=== PATIENT | female | born 1985 | race Caucasian/White ===

== ENCOUNTER 2021-04-13 01:18 | Outpatient (CLI) | payer MEDICAID, SELFPAY ==
--- NOTE | 2021-04-13 | DI.US_ITS ---
Exam(s) US OB EL WEIGHT EXAM: US OB EL WEIGHT CLINICAL HISTORY: GROWTH SCAN,SIZE GREATER THAN DATES. TECHNIQUE: Transabdominal obstetrical ultrasound was performed. COMPARISON: No exams were available for comparison . This is the 1st study for this gestation our d epartment FINDINGS: There is a single viable intrauterine gestation with cardiac activity identified-157 bpm The fetus is presently in cephalic position . Amniotic fluid: There is a normal amount of amniotic fluid with an EL of 10.0cm. Placental location: The placenta is [id number] 2,with no evidence of placenta previa. Dating parameters place this at approximately 38 weeks gestational age, implying ELIO of Apr. BPD measures 37 weeks HC measures 38 weeks and 1 day AC measures 38 weeks and 4 days FL measures 38 weeks and 3 days Estimated weight is 3454 gm-7 pounds 10 ounces Fetus is at the 80th percentile on the Hadlock scale. IMPRESSION:: Viable 3rd trimester gestation, as described above. Fetus is presently in cephalic position There is normal amount of amniotic fluid DATA REPOSITORY:
== END 2021-04-13 01:38 ==
PROVIDERS: PCP Family Medicine; Visit Provider Family Medicine
DX: O09.523 Supervision of elderly multigravida, third trimester (principal); O26.843 Uterine size-date discrepancy, third trimester
CPT/HCPCS: 76816

== ENCOUNTER 2021-04-29 20:03 | Observation (INO) | payer MEDICAID, SELFPAY ==
--- NOTE | 2021-04-06 11:28 | ANES.CON_ITS ---
General Date of Service Date of Service: 04/06/21 Reason for Consult Requesting Provider: Priya Tejeda Other Provider(Not Listed Above): Natalie Frederick How Consult Conducted:: Seen in Office Reason for Consult:: Elevated BMI of 46 Consult Recommendation after Review:: Good venous access, reasonable spine, OK to proceed with delivery at [facility] Meds Allergies and Home Medications Allergies Allergy/AdvReac Type Severity Reaction Status Date / Time Sulfa (Sulfonamide Allergy Verified 04/06/21 10:41 Antibiotics) Home Medication Medication Instructions Recorded Unknown [No Known Home Meds] 04/06/21 [facility] Active Problems Active Problems: Problem Status Onset Code Rubella non-immune status, antepartum O99.891, Z28.3 Abnormal glucose affecting O99.810 Obesity affecting in second trimester O99.212 AMA (advanced maternal age) multigravida 35+ O09.529 Vital Signs & Lab Results Point of Care Results Nursing Point of Care Results: No Data to Display Lab Results Blood Type / Crossmatch: No Data to Display Complete Blood Count: No Data to Display Complete Metabolic Panel: No Data to Display Liver Function Panel: No Data to Display Coagulation Panel: No Data to Display Cardiac Panel: No Data to Display Arterial Blood Gas: No Data to Display Venous Blood Gas: No Data to Display Pancreas Panel: No Data to Display Thyroid Panel: No Data to Display Infectious Disease: No Data to Display Blood Cultures: No Data to Display Toxicology Panel: No Data to Display Panel: No Data to Display Anesthesia Assessment and Plan Anesthesia History Personal History: No History of Anesthesia Complications Family History: No Family History of Anesthesia Complications Exercise Tolerance Exercise Tolerance: Metabolic Equivalents>4 Pertinent Negatives Pertinent Negatives: No Major Cardiovascular Symptoms or Complaints, No Major Pulmonary Symptoms or Complaints and No History of CVA/TIA Airway Exam Known Difficult Airway: No Mallampati Class: 3 Mouth Opening: Normal (> 3cm) Thyromental Distance: Greater than 3 cm Neck Range of Motion: Full ROM Neck Circumference: Normal Teeth Condition: Dental Caries (None loose per patient) ASA Classification ASA Score: ASA 3 Status Status: Confirmed Anesthesia Plan Resuscitation Status: Full Code
[2021-04-29 21:12] VITALS: BP 131/66; PULSE 111; RESP 18; TEMP 36.8
--- NOTE | 2021-04-29 22:26 | W.PM.OBHPL1 ---
Date of service: 04/29/21 Time of Service: 22:36 Assessment and Plan Assessment and plan (1) Obesity affecting in second trimester: Status: Acute Assessment and plan: no signs labor - ctx stopped, cervix unchanged. FHT reassuring, cat 1 Maternal wellbeing Home to rest, close outpt f/u at office. Call or return if ctx recur or she has any questions or concerns Scheduled PN appt mon 05/03 (2) AMA (advanced maternal age) multigravida 35+: Status: Acute (3) Tobacco abuse: Status: Acute (4) Rubella non-immune status, antepartum: Status: Acute (5) Abnormal glucose affecting : Status: Acute OB-HPI Labor/Delivery History of Present Illness Reason for Visit: Rule Out term labor Chief Complaint: Uterine Contractions. ELIO Calculator Estimated Delivery Date Method Current WG Current Estimate 05/01/21 LMP (Certain) 39w 5d Comments: called with mild ctx started ~7 pm. No ROM, excellent FM, no BURGESS, fever, cough, COVID sx or concerns. Quick labors in past and lives 1 hr away - I asked her to come for labor check On admission continued mild ctx, they have since faded/stopped. Cervix unchanged over the 70 min she was here. NST cat 1 with one isolated decel - excellent variability and nl vitals History of Present Expected Delivery Route/Plan with [place] Specific Issues/Plan 1. AMA 2. Obesity: BMI 47. Anesthesia consult 3. Elevated fasting on 3hr GTT: has adjusted diet and started checking finger sticks but only postprandial, which are all normal. Will start checking fasting levels as well. Assessment: History Reviewed & Current [facility] Medical History (Updated 04/06/21 @ 12:07 by Priya Tejeda MD) Anxiety Tobacco abuse Surgical History (Updated 04/06/21 @ 12:11 by Priya Tejeda MD) History of cholecystectomy History of tonsillectomy and adenoidectomy Family History (Updated 04/06/21 @ 12:45 by Priya Tejeda MD) Mother Depression Thyroid disease Father No problems noted. Other Cancer Social History (Updated 04/06/21 @ 12:30 by Priya Tejeda MD) Smoking/Tobacco Use Status: Current every day Tobacco Type: cigarettes Smoking packs per day: 0.5 Smoking cigarettes per day: 10.0 Smoking risk assessment performed?: Yes Female Reproductive History Menstrual control method: permanent sterilization ( scheduled for vasectomy) History History 6 Para 3 Hx # Term Pregnancies 3 Multiple births Hx # Pregnancies Ectopic pregnancies AB induced 2 Hx Number of Living Children 3 AB spontaneous Past Pregnancies Del. Date GA/Weeks # Outcome Route Wgt Sex Labor Lgth Anesthesia Location Prov Complic 11/15/05 40 No Successful vaginal 3600.389 g Male 6hr APD 06/06/08 40 No Successful vaginal 3628.739 g Female 5hr APD 03/04/20 41 No Successful vaginal 2920.001 g Female 4hr [facility] [place] Delivery Date: 11/15/05 No notes to display Delivery Date: 06/06/08 No notes to display Delivery Date: 03/04/20 Induction due to postdates Baclawski,Priya Meds Allergies and Home Medications Allergies Allergy/AdvReac Type Severity Reaction Status Date / Time Sulfa (Sulfonamide Allergy Verified 04/06/21 10:41 Antibiotics) Home Medications Medication Instructions Recorded Confirmed Type Unknown [No Known Home Meds] 04/06/21 04/06/21 History Exam Physical Exam Vital signs: Temp Pulse Resp BP 36.8 C 111 H 18 131/66 04/29/21 21:12 04/29/21 21:12 04/29/21 21:12 04/29/21 21:12 Constitutional Constitutional: no acute distress, obese and cooperative Detailed Labor and Delivery Exam Dilation: 2 Effacement (%): 50 station: 0 Position: OA Cervix position: anterior Consistency: soft Tyler Score: Cervical Points Exam 0 1 2 3 Dilation Closed 1-2cm 3-4 cm 5-6cm Effacement 0-30% 40-50% 60-70% 80% Consistency Firm Medium Soft Station -3 -2 -1,0 +1,+2 Position Posterior Mid Anterior TYLER Score(Cervical Ripeness Score): 8 Amniotic Membrane Status: Intact Contraction Frequency(min): q 4-10 mild Contraction Intensity: Mild Fetus A Heart Rate Baseline: 160 Monitor Accelerations: 15 X 15 Variability: Moderate (6-25 BPM) Presentation: Cephalic Categories: Category I Est. Weight: 3600 kg Assessment Note: fetql wellbeing Detailed Abdominal Exam Abdominal: Present soft Comments: soft, non tender abd - fundus ~39cm obese Detailed Exam Comments: cervix as above Extremities Exam Extremities Exam: Normal Detailed Extremities Exam Comments: no edema Skin Exam Skin Exam: Normal Neurological Exam Neurological Exam: Normal Risk Assessment Risks Reviewed Risks Reviewed Upon Admission: Yes
== END 2021-04-29 22:25 | disposition home or self-care (01) ==
LOC: OBS 21:15
PROVIDERS: Admitting Provider Family Medicine; PCP Family Medicine; Visit Provider Family Medicine
DX: O47.1 False labor at or after 37 completed weeks of gestation (principal); O99.810 Abnormal glucose complicating pregnancy; R73.02 Impaired glucose tolerance (oral); O99.213 Obesity complicating pregnancy, third trimester; O99.333 Smoking (tobacco) complicating pregnancy, third trimester; F17.210 Nicotine dependence, cigarettes, uncomplicated; O99.343 Other mental disorders complicating pregnancy, third trimester; F41.9 Anxiety disorder, unspecified
CPT/HCPCS: G0378

== ENCOUNTER 2021-04-30 22:41 | Observation (INO) | payer MEDICAID, SELFPAY ==
[2021-04-30 23:23] VITALS: BP 131/79; PULSE 109; RESP 19; TEMP 36.5
[2021-04-30 23:34] VITALS: BP 131/79; PULSE 107
[2021-04-30 23:57] VITALS: PULSE 105
[2021-05-01] VITALS (11 sets, daily range): BP systolic 128–145; BP diastolic 62–71; PULSE 83–109
--- NOTE | 2021-05-01 00:07 | HPE_ITS ---
Date of service: 05/01/21 Time of Service: 00:22 Assessment and Plan Assessment and plan (1) Obesity affecting in second trimester: Status: Acute Assessment and plan: as abov4e - no labor - home with routine instructions and close f/u scheduled. Cat 1 strip identified. Scarlet (2) AMA (advanced maternal age) multigravida 35+: Status: Acute (3) Tobacco abuse: Status: Acute OB-HPI Labor/Delivery History of Present Illness Reason for Visit: rule out labor Chief Complaint: Uterine Contractions. ELIO Calculator Estimated Delivery Date Method Current WG Current Estimate 05/01/21 LMP (Certain) 40w 0d Comments: Similar to 24hrs ago - mild ctx onset ~8pm - awakened her from sleep. No ROM, good FMVT, no BURGESS, visual changes, rash, fever. Now, ~3+ hrs later no cervical change vs yesterday and reassuring Cat1 NST with mild infreq, irreg uterine activity. ASS: No labor, reassuring and maternal condition Home with labor precautions F/u appt in [place] mon 9 AM if no labor over the w/e. Marcelo know to call or return if questions, concerns. Encouraged to minimize cig use - currently at 10/day. S.Hasmukh History of Present Expected Delivery Route/Plan with [place] Specific Issues/Plan 1. AMA 2. Obesity: BMI 47. Anesthesia consult 3. Elevated fasting on 3hr GTT: has adjusted diet and started checking finger sticks but only postprandial, which are all normal. Will start checking fasting levels as well. [facility] Medical History (Updated 04/06/21 @ 12:07 by Priya Tejeda MD) Anxiety Tobacco abuse Surgical History (Updated 04/06/21 @ 12:11 by Priya Tejeda MD) History of cholecystectomy History of tonsillectomy and adenoidectomy Family History (Updated 04/06/21 @ 12:45 by Priya Tejeda MD) Mother Depression Thyroid disease Father No problems noted. Other Cancer Social History (Updated 04/06/21 @ 12:30 by Priya Tejeda MD) Smoking/Tobacco Use Status: Current every day Tobacco Type: cigarettes Smoking packs per day: 0.5 Smoking cigarettes per day: 10.0 Smoking risk assessment performed?: Yes Female Reproductive History Menstrual control method: permanent sterilization ( scheduled for vasectomy) History History 6 Para 3 Hx # Term Pregnancies 3 Multiple births Hx # Pregnancies Ectopic pregnancies AB induced 2 Hx Number of Living Children 3 AB spontaneous Past Pregnancies Del. Date GA/Weeks # Outcome Route Wgt Sex Labor Lgth Anesthes ia Location Prov Complic 11/15/05 40 No Successful vaginal 3600.389 g Male 6hr APD 06/06/08 40 No Successful vaginal 3628.739 g Female 5hr APD 03/04/20 41 No Successful vaginal 2920.[address] [facility] Delivery Date: 11/15/05 No notes to display Delivery Date: 06/06/08 No notes to display Delivery Date: 03/04/20 Induction due to postdates BaclawskiPriya Meds Allergies and Home Medications Allergies Allergy/AdvReac Type Severity Reaction Status Date / Time Sulfa (Sulfonamide Allergy Verified 04/06/21 10:41 Antibiotics) Home Medications Medication Instructions Recorded Confirmed Type Unknown [No Known Home Meds] 04/06/21 04/06/21 History Exam Physical Exam Vital signs: Temp Pulse Resp BP 36.5 C 106 H 19 131/79 04/30/21 23:23 05/01/21 00:01 04/30/21 23:23 04/30/21 23:34 Constitutional Constitutional: no acute distress Detailed Labor and Delivery Exam Dilation: 2 Effacement (%): 50 station: 0 Position: OA Cervix position: anterior Consistency: soft Tyler Score: Cervical Points Exam 0 1 2 3 Dilation Closed 1-2cm 3-4 cm 5-6cm Effacement 0-30% 40-50% 60-70% 80% Consistency Firm Medium Soft Station -3 -2 -1,0 +1,+2 Position Posterior Mid Anterior TYLER Score(Cervical Ripeness Score): 8 Amniotic Membrane Status: Intact Contraction Frequency(min): mild q 2-5 Contraction Intensity: Mild Fetus A Heart Rate Baseline: 145 Monitor Accelerations: 15 X 15 Monitor Decelerations: Prolonged Variability: Moderate (6-25 BPM) Presentation: Cephalic Categories: Category I Est. Weight: 3600 Assessment Note: two decels to ~110 unassoc with ctx. excellent variabil;ity and accels throughout 30-40 min strip. Similar isolated decel last night too - ?related to cig use prior to admission? Abdominal Exam Abdominal Exam: Normal Detailed Abdominal Exam Abdominal: Present soft Comments: non-tender. i palpated mild ctx times one during 20 min at bedside Results Results Group Beta Strep: Negative Rubella Status: Immune Varicella Immunity: Not Tested Risk Assessment Risks Reviewed Risks Reviewed Upon Admission: Yes
--- NOTE | 2021-05-01 07:38 | HPE_ITS ---
Date of service: 05/01/21 Time of Service: 07:52 Assessment and Plan Assessment and plan (1) Tobacco abuse: Status: Acute (2) Abnormal glucose affecting : Status: Acute (3) Obesity affecting in second trimester: Status: Acute (4) AMA (advanced maternal age) multigravida 35+: Status: Acute (5) Active labor: Status: Acute Assessment and plan: avg risk for shoulder dystocia given tested pelvis offset by obesity Active labor with hx short labors - will admit for expectant management. Encourage po fluids, ambulation, shower, tub. Thus far has good support from partner and is tolerating well. and Maternal wellbeing noted. Melissa Noe OB-HPI Labor/Delivery History of Present Illness Reason for Visit: rule out labor Chief Complaint: Uterine Contractions. ELIO Calculator Estimated Delivery Date Method Current WG Current Estimate 05/01/21 LMP (Certain) 40w 0d Comments: vs last night's eval - more intense uterine activity. Feeling in her back, no ROM, goiod FMVT. Plans shower and walking for pain control History of Present Expected Delivery Route/Plan with [place] Specific Issues/Plan 1. AMA 2. Obesity: BMI 47. Anesthesia consult 3. Elevated fasting on 3hr GTT: has adjusted diet and started checking finger sticks but only postprandial, which are all normal. Will start checking fasting levels as well. Narrative: AMA NL 3 hr GTT Obesity Term today [facility] History (Updated 05/01/21 @ 07:46 by Gilberto Noe) Anxiety Tobacco abuse Surgical History (Updated 04/06/21 @ 12:11 by Priya Tejeda MD) History of cholecystectomy History of tonsillectomy and adenoidectomy Family History (Updated 04/06/21 @ 12:45 by Priya Tejeda MD) Mother Depression Thyroid disease Father No problems noted. Other Cancer Social History (Updated 04/06/21 @ 12:30 by Priya Tejeda MD) Smoking/Tobacco Use Status: Current every day Tobacco Type: cigarettes Smoking packs per day: 0.5 Smoking cigarettes per day: 10.0 Smoking risk assessment performed?: Yes Do you feel safe at home: Yes Do you feel safe in your relationship?: Yes Female Reproductive History Menstrual control method: permanent sterilization ( scheduled for vasectomy) History History 6 Para 3 Hx # Term Pregnancies 3 Multiple births Hx # Pregnancies Ectopic pregnancies AB induced 2 Hx Number of Living Children 3 AB spontaneous Past Pregnancies Del. Date GA/Weeks # Outcome Route Wgt Sex Labor Lgth Anesthes ia Location Prov Complic 11/15/05 40 No Successful vaginal 3600.389 g Male 6hr APD 06/06/08 40 No Successful vaginal 3628.739 g Female 5hr APD 03/04/20 41 No Successful vaginal 2920.001 g Female 4hr [facility] [place] Delivery Date: 11/15/05 No notes to display Delivery Date: 06/06/08 No notes to display Delivery Date: 03/04/20 Induction due to postdates Baclawski,Priya Meds Allergies and Home Medications Allergies Allergy/AdvReac Type Severity Reaction Status Date / Time Sulfa (Sulfonamide Allergy Verified 04/06/21 10:41 Antibiotics) Home Medications Medication Instructions Recorded Confirmed Type Unknown [No Known Home Meds] 04/06/21 04/06/21 History Exam Physical Exam Vital signs: Temp Pulse Resp BP 36.5 C 101 H 19 141/67 H 04/30/21 23:23 05/01/21 06:31 04/30/21 23:23 05/01/21 06:31 Vital Signs Reviewed: Yes Narrative: uncomfortable with ctx Constitutional Constitutional: no acute distress Detailed Labor and Delivery Exam Dilation: 5 Effacement (%): 50 station: 0 Position: OA Cervix position: anterior Consistency: soft Tyler Score: Cervical Points Exam 0 1 2 3 Dilation Closed 1-2cm 3-4 cm 5-6cm Effacement 0-30% 40-50% 60-70% 80% Consistency Firm Medium Soft Station -3 -2 -1,0 +1,+2 Position Posterior Mid Anterior TYLER Score(Cervical Ripeness Score): 9 Amniotic Membrane Status: Intact Monitor Mode: External Contraction Frequency(min): difficult to trace - palpate q 2-4 moderate Contraction Intensity: Moderate Fetus A Heart Rate Baseline: 145 Monitor Accelerations: 15 X 15 Monitor Decelerations: None Variability: Moderate (6-25 BPM) Presentation: Cephalic Categories: Category I Est. Weight: 3600 HEENT Exam HEENT Exam: Normal Detailed HEENT Exam Head: Present normocephalic Comments: smells of smoke Neck Exam Neck Exam: Normal Chest/Brest/Axilla Exam Chest Exam: Normal Breast Exam Breast Exam: Not Done Respiratory Exam Respiratory Exam: Normal Cardiovascular Exam Cardiovascular Exam: Normal Abdominal Exam Abdominal Exam: Normal Detailed Abdominal Exam Abdominal: Present soft Comments: obese, non-tender save with kicks and ut activity/ctx Rectal Exam Rectal Exam: Not Done Exam Exam: Normal Detailed Exam Comments: cvx as above Extremities Exam Extremities Exam: Normal Detailed Extremities Exam Comments: mild pedal edema Skin Exam Skin Exam: Normal Detailed Skin Exam Comments: couple tiny skin irritation/pimples on abd/ Neurological Exam Neurological Exam: Normal Psychiatric Exam Psychiatric Exam: Normal Results Results Group Beta Strep: Negative Rubella Status: Immune Varicella Immunity: Not Tested Risk Assessment Risks Reviewed Risks Reviewed Upon Admission: Yes
--- NOTE | 2021-05-01 08:45 | W.PM.OBNL1 ---
Date of service: 05/01/21 Time of Service: 08:54 Pelvic Exam Dilation: 6 Effacement (%): 50 station: 0 Position: OA Cervix Position: anterior Consistency: soft Vaginal Exam Presentation: Cephalic Comments: cervical change from exam @ 11 pm 04/30 - little station change Contractions Monitor Mode: External Contraction Frequency(min): 3-6 Intensity: Moderate Fetus A Heart Rate Baseline: 145 Presentation: Cephalic Variability: Moderate (6-25 BPM) Categories: Category I FHR Rhythm: Regular Characteristics: Normal Accelerations: 10 X 10 Decelerations: None Amniotic Membrane Status: Intact Assessment Note: wellbeing Assessment and Plan Assessment and plan (1) Active labor: Start date: 05/01/21 Start time: 05:52 Status: Acute Assessment and plan: Doing well so far. Expected cervical change with early labor. Thus far tired and sticking close to bed. Will encourage up to shower, perhaps some walking, tub perhaps. Nitrous consent signed snack, po fluids Expect Given loud snoring she is at risk of USMAN - will suggest sleep study post . Scarlet Objective Temp Pulse Resp BP 36.5 C 90 19 131/66 04/30/21 23:23 05/01/21 07:44 04/30/21 23:23 05/01/21 07:44 Subjective Patient Reports: No new Complaints Interval history since last seen: Snoozing some, prefers hot water bottle - still irreg intervals - Q 3-6 min mod intensity - feeling in back. FHT cat 1 no ROM Open to tub/shower/walking, but tired. PO water consistently - snacking now. Good FMVT
--- NOTE | 2021-05-01 13:40 | W.PM.OBNL1 ---
Date of service: 05/01/21 Time of Service: 13:49 Assessment and Plan Assessment and plan (1) Active labor: Status: Acute Assessment and plan: as above labor progress stalled with dec in ctx freq and strength. will move to pitocin augmentation. Martine aware that nearly 7 hrs of support have not resulted in her labor kicking in. Augmentation reasonable to initiate. R+B discussed as above will add nicotine inhaler too - to help reduce anxiety and nicotine withdrawl (2) Tobacco abuse: Status: Acute (3) Obesity affecting in second trimester: Status: Acute Objective Temp Pulse Resp BP 36.5 C 100 H 19 139/71 04/30/21 23:23 05/01/21 10:49 04/30/21 23:23 05/01/21 10:49 Objective Narrative Objective Narrative: cervix 6 cm, soft, stretchy, ant, 0 station 50%, vtx with no exchange mechanic the day. Bishops score ~9 FHT cat 1 - mod variability Subjective Interval history since last seen: Ctx quite random and infreq the past 30 min. good Fmvmt. I tried to AROM ~1 hr ago but scant fluid noted. FHT reassuring Discussion @ noon re addition of Pit aug given pokey ctx pattern and scant descent, effacement or cervical change since admission. She and Raul fully a part of discussion over the past hour or so, with session in tub in between, re benefits of Pitocin (stronger ctx and labor progression) with tiny risks of heart rate abnormalities, maternal discomfort. she is ready to help guide dose increases and timing there of to have full agency. Interventions Augmentation (see informed consent discussions above) , Pitocin rate (mU/min): 2 as above .
== END 2021-05-01 00:10 | disposition home or self-care (01) ==
LOC: OBS 23:24
PROVIDERS: Admitting Provider Family Medicine; PCP Family Medicine; Visit Provider Family Medicine
DX: O99.810 Abnormal glucose complicating pregnancy (principal); O99.213 Obesity complicating pregnancy, third trimester; O99.333 Smoking (tobacco) complicating pregnancy, third trimester; E66.9 Obesity, unspecified; F17.210 Nicotine dependence, cigarettes, uncomplicated; R73.02 Impaired glucose tolerance (oral); O99.343 Other mental disorders complicating pregnancy, third trimester; F41.9 Anxiety disorder, unspecified; Z3A.40 40 weeks gestation of pregnancy
CPT/HCPCS: G0378

== ENCOUNTER 2021-05-01 06:21 | Inpatient (IN) | payer MEDICAID, SELFPAY ==
[2021-05-01] VITALS (12 sets, daily range): BP systolic 120–145; BP diastolic 65–71; PULSE 83–122; RESP 14–20; TEMP 36.6–37.2
[2021-05-01 07:23] LABS: HCT 43.3 % (36.0-46.0); HGB 14.4 g/dL (11.2-15.7); MCH 29.4 pg (27.0-33.0); MCHC 33.3 % (32.0-36.0); MCV 88.5 fL (80-95); MPV 9.4 fL (8.0-11.0); Platelet Count 345 10^3/uL (130-400); RBC 4.89 10^6/uL (3.93-5.22); RDW 14.4 % (11.7-14.6); RDW-SD 46.4 fL; WBC 16.42 10^3/uL (4.4-10.8)
[2021-05-01 07:51] LABS: Source Nasal/Nares
[2021-05-01 08:51] LABS: COVID-19 PCR Negative (Negative)
[2021-05-01] MEDS: Normal Saline Flush 10 ML SYR IVP ×2 (12:11→14:46)
[2021-05-01] MEDS: Oxytocin/Normal Saline 30 UNIT/500 ML BAG 2 UNITS IV (14:47)
[2021-05-01] MEDS: Lactated Ringers 1,000 ML 125 ML IV (14:47)
--- NOTE | 2021-05-01 15:15 | PGE_ITS ---
Date of service: 05/01/21 Time of Service: 15:19 Assessment and Plan Assessment and plan (1) Active labor: Status: Acute Assessment and plan: now 40 minutes into pit aug. will recheck cervix when pattern more established and consistent - still room for improvement in intensity and regularity of ctx. wellbeing continues Expect , inc pit per protocol and support Martine with nitrous and partner. nicotine inhaler at bedside. Melissa Noe (2) Tobacco abuse: Status: Acute (3) Obesity affecting in second trimester: Status: Acute Objective Abnormal lab results 05/01/21 Range/Units 07:05 WBC 16.42 H (4.4-10.8) 10^3/uL Temp Pulse Resp BP 36.6 C 93 H 16 145/71 H 05/01/21 13:45 05/01/21 13:45 05/01/21 13:45 05/01/21 13:45 Laboratory Results WBC 16.42 10^3/uL (4.4-10.8) H 05/01/21 07:05 RBC 4.89 10^6/uL (3.93-5.22) 05/01/21 07:05 Hgb 14.4 g/dL (11.2-15.7) 05/01/21 07:05 Hct 43.3 % (36.0-46.0) 05/01/21 07:05 MCV 88.5 fL (80-95) 05/01/21 07:05 MCH 29.4 pg (27.0-33.0) 05/01/21 07:05 MCHC 33.3 % (32.0-36.0) 05/01/21 07:05 RDW 14.4 % (11.7-14.6) 05/01/21 07:05 Plt Count 345 10^3/uL (130-400) 05/01/21 07:05 MPV 9.4 fL (8.0-11.0) 05/01/21 07:05 COVID-19 Source Nasal/Nares 05/01/21 07:50 SARS-CoV-2 (PCR) Negative (Negative) 05/01/21 07:50 Patient ABO/Rh A Positive 05/01/21 07:05 Antibody Screen NEGATIVE 05/01/21 07:05 Subjective Interval history since last seen: comfortable with pit at 2 - just up to 4 minutes ago. FHT cont to be cat 1 - continued difficulty picking up ctx with remote monitor - manual palpation ef fective substitiute drinking water, feels ok - using nitrous partner and support person in room Results Hemoglobin/Hematocrit: Hgb 14.4 g/dL (11.2-15.7) 05/01/21 07:05 Hct 43.3 % (36.0-46.0) 05/01/21 07:05 Abnormal Lab Findings: Abnormal Labs 05/01/21 07:05 WBC 16.42 H
--- NOTE | 2021-05-01 16:20 | PGE_ITS ---
Date of service: 05/01/21 Time of Service: 16:23 Assessment and Plan Assessment and plan (1) Active labor: Status: Acute Assessment and plan: turning corner to second stage FHT cat 1 - wellbeing at present may switch monitors support with pushing expect have titrated pit up to 4 and now down to 1 given strong ctx. nitrous helpful for comfort Objective Abnormal lab results 05/01/21 Range/Units 07:05 WBC 16.42 H (4.4-10.8) 10^3/uL Temp Pulse Resp BP 36.6 C 93 H 16 145/71 H 05/01/21 13:45 05/01/21 13:45 05/01/21 13:45 05/01/21 13:45 Laboratory Results WBC 16.42 10^3/uL (4.4-10.8) H 05/01/21 07:05 RBC 4.89 10^6/uL (3.93-5.22) 05/01/21 07:05 Hgb 14.4 g/dL (11.2-15.7) 05/01/21 07:05 Hct 43.3 % (36.0-46.0) 05/01/21 07:05 MCV 88.5 fL (80-95) 05/01/21 07:05 MCH 29.4 pg (27.0-33.0) 05/01/21 07:05 MCHC 33.3 % (32.0-36.0) 05/01/21 07:05 RDW 14.4 % (11.7-14.6) 05/01/21 07:05 Plt Count 345 10^3/uL (130-400) 05/01/21 07:05 MPV 9.4 fL (8.0-11.0) 05/01/21 07:05 COVID-19 Source Nasal/Nares 05/01/21 07:50 SARS-CoV-2 (PCR) Negative (Negative) 05/01/21 07:50 Patient ABO/Rh A Positive 05/01/21 07:05 Antibody Screen NEGATIVE 05/01/21 07:05 Notable Details: cervix 8/80%/+1/vtx/ruptured - clear Subjective Interval history since last seen: more intense ctx - feeling pushy - consistent and strong fht tricky to fruit or nut picker - tech issue - may revert to standard toco Results Hemoglobin/Hematocrit: Hgb 14.4 g/dL (11.2-15.7) 05/01/21 07:05 Hct 43.3 % (36.0-46.0) 05/01/21 07:05 Abnormal Lab Findings: Abnormal Labs 05/01/21 07:05 WBC 16.42 H
--- NOTE | 2021-05-01 17:42 | W.OBDELIVERY ---
Date of service: 05/01/21 Time of Service: 17:51 OB Labor/ Delivery Information Baby A Delivery Delivery Method: Spontaneaous Presentation: Cephalic Cephalic Position: Vertex Vertex Position: Left Occipital Posterior Breech Position: N/A Cord Description-Baby A: 3 Vessels Estimated Blood Loss: 200 so far Delivery Outcome: Liveborn Complications: none Transferred: Remains with Mother Note: single strong push brought vtx from +2 and ant lip to . No caput/molding and with strong push head followed by body 'shot' right out. vigorous - lusty cry - to mat abd - 03/11/10 no perineal tears retained placenta - gentle traction and maternal pushing did not yield placents - 3 v cord 45 min post delivery with no bleeding I obtained verbal consent for manual exploration and attempt at manual placental removal tracing cord to lower ut segment/cervix found it closed down and about 4 cm in diameter - unable to grab or move placenta - effort unsuccessful Nitrous used for maternal comfort Will consult Priya Tejeda for assistance with additional measures for placental extraction. Providers Doctor: Gilberto Noe Nurse: Lucia Cota Labor/Delivery Information Number of Babies in Womb: 1 Steroids Given: None Reason Steroids Not Administered: N/A Group Beta Strep: Negative Rubella Status: Nonimmune Blood Type: A+ Varicella Immunity: Not Tested Medication in Delivery: Pitocin augment only Shoulder Dystocia: No Stages of Labor Onset of Labor Date: 04/30/21 Onset of Labor Time: 21:30 Complete Dilatation Date: 05/01/21 Complete Dilatation Time: 16:20 Labor - Stage 1 Duration: 24 hours and 0 minutes ROM Baby A: 05/01/21 ROM Baby A: 12:14 ROM Total Time- Baby A: [id number] Infant Delivery Date-Baby A: 05/01/21 Infant Delivery Time-Baby A: 16:47 Labor Stage 2 Duration: 27 minutes Placenta Delivery Date-Baby A: 05/01/21 Total Length of Labor-Baby A: 19 hours and 17 minutes Placenta Status: Delivered Baby A Infant Gender: Female Gestational Status: Term (39-41.6 wks) Gestational Age in Weeks/Days: 40 Weeks and 0 Days Score-1 Minute Interval(Baby A) Heart Rate-1 minute: 100 BPM or Greater Respiratory Effort- 1 minute: Spontaneous/Strong Cry Muscle Tone-1 minute: Active Movement Reflex Response-1 minute: Prompt Response Color-1 minute: Bluish Hands or Feet Total Score-1 minute: 9 Score-5 Minute Interval(Baby A) Heart Rate- 5 minute: 100 BPM or Greater Respiratory Effort-5 minute: Spontaneous/Strong Cry Muscle Tone-5 minute: Active Movement Reflex Response-5 minute: Prompt Response Color-5 minute: Bluish Hands or Feet Total Score- 5 minute: 9 Procedure Procedures: Retained Placenta Extraction , see note above Hemorrrhage Note Total Blood Loss for PPH Event Quantitative Blood Loss: 200
[2021-05-01] MEDS: fentaNYL 100 MCG/2 ML VIAL 50 MCG IVP (18:21)
[2021-05-01] MEDS: Oxytocin/Normal Saline 30 UNIT/500 ML BAG 95 UNITS IV (18:24)
--- NOTE | 2021-05-01 18:31 | OBCE_ITS ---
Date of service: 05/01/21 Time of Service: 18:31 Assessment and Plan Assessment and plan (1) Retained placenta or amniotic membrane after delivery without hemorrhage: Status: Acute Assessment and plan: Pt will continue with routine care managed by Dr. Ambrose. I do not believe prophylactic abx are necessary since it was not technically a manual removal as I was unable to get my hand inside the uterus due to the cervix closing down. History of Present Illness History of Present Illness Chief Complaint: retained placenta Narrative: Called to assist with retained placenta. Cervix had closed down and family doc was unable to manually remove it. Minimal vaginal bleeding. Consults Consult date: 05/01/21 Requesting physician: Gilberto Noe Review of Systems Genitourinary Genitourinary: Reports as per [facility] Medical History (Updated 05/05/21 @ 10:15 by Priya Tejeda MD) Anxiety Tobacco abuse Surgical History (Updated 04/06/21 @ 12:11 by Priya Tejeda MD) History of cholecystectomy History of tonsillectomy and adenoidectomy Family History (Updated 04/06/21 @ 12:45 by Priya Tejeda MD) Mother Depression Thyroid disease Father No problems noted. Other Cancer Social History (Updated 04/06/21 @ 12:30 by Priya Tejeda MD) Smoking/Tobacco Use Status: Current every day Tobacco Type: cigarettes Smoking packs per day: 0.5 Smoking cigarettes per day: 10.0 Smoking risk assessment performed?: Yes Do you feel safe at home: Yes Do you feel safe in your relationship?: Yes Female Reproductive History Menstrual control method: permanent sterilization ( scheduled for vasectomy) History History 6 Para 3 Hx # Term Pregnancies 3 Multiple births Hx # Pregnancies Ectopic pregnancies AB induced 2 Hx Number of Living Children 3 AB spontaneous Past Pregnancies Del. Date GA/Weeks # Outcome Route Wgt Sex Labor Lgth Anesthes ia Location Prov Complic 11/15/05 40 No Successful vaginal 7 lb 15 oz Male 6hr APD 06/06/08 40 No Successful vaginal 8 lb Female 5hr APD 03/04/20 41 No Successful vaginal 6 lb 7 oz Female [address] [facility] Delivery Date: 11/15/05 No notes to display Delivery Date: 06/06/08 No notes to display Delivery Date: 03/04/20 Induction due to postdates Priya Tejeda Exam Const General: cooperative and healthy appearing [facility] Head: normocephalic and atraumatic Ears: hearing grossly normal bilaterally Resp Effort & Inspection: normal respiratory effort and able to speak in complete sentences Other: An internal exam reveal the cervix to be only about 4cm dilated but there were some membranes prolapsing out. This allowed for the lower edge of the placenta to be teased out. Wtih 3 exams, due to the patient needing a break, the placenta was teased out of the cervix and easily removed and appeared to be intact. The patient tolerated the exam with the use of nitrous and then IV fentanyl. Minimal bleeding after removal. Neuro General: patient alert and patient awake Psych Appearance: grossly normal Mental Status: mental status grossly normal Speech and Movement: speech and movement normal Affect: normal affect Attitude: cooperative Thought Process: normal Thought Content: normal Results Last Vital Signs Temp 97.9 F 05/01/21 13:45 Pulse 93 H 05/01/21 13:45 Resp 16 05/01/21 13:45 BP 145/71 H 05/01/21 13:45 Labs Result diagrams: 05/02/21 06:10 Labs: Laboratory Results - last 24 hr 05/01/21 05/01/21 05/01/21 07:05 07:05 07:50 WBC 16.42 H RBC 4.89 Hgb 14.4 Hct 43.3 MCV 88.5 MCH 29.4 MCHC 33.3 RDW 14.4 Plt Count 345 MPV 9.4 COVID-19 Source Nasal/Nares SARS-CoV-2 (PCR) Negative Patient ABO/Rh A Positive Antibody Screen NEGATIVE
[2021-05-02 02:14] VITALS: BP 129/72; PULSE 104; RESP 19; TEMP 36.7; O2SAT 96
[2021-05-02 07:11] LABS: HCT 41.7 % (36.0-46.0); HGB 13.8 g/dL (11.2-15.7); MCH 29.6 pg (27.0-33.0); MCHC 33.1 % (32.0-36.0); MCV 89.5 fL (80-95); MPV 9.5 fL (8.0-11.0); Platelet Count 355 10^3/uL (130-400); RBC 4.66 10^6/uL (3.93-5.22); RDW 14.4 % (11.7-14.6); RDW-SD 47.1 fL; WBC 15.67 10^3/uL (4.4-10.8)
[2021-05-02 08:25] VITALS: BP 117/78; PULSE 86; RESP 16; TEMP 36.6; O2SAT 97
[2021-05-02] MEDS: Measles, Mumps, & Rubella Vaccine 0.5 ML VIAL SC (10:54)
--- NOTE | 2021-05-02 17:48 | DSE_ITS ---
DS: Diagnosis Discharge Diagnosis (1) Active labor: Status: Acute Discharge Plan Disposition Patient Disposition: HOME Condition: Stable Discharge Details Reason For Visit: Rule Out Labor Admit Date/Time: 05/01/21 06:22 Admit Provider: Gilberto Noe Attending Provider: Gilberto Noe Primary Care Provider: Rhina Daniels Hospital Course Hospital Course: see above Home Meds and New Rx's Prescriptions: No Action No Known Home Meds RF: 0 Discharge Instructions Stand Alone Forms: BC Post Vaginal Deliver Activity:: Activity as Tolerated Equipment/Supplies:: No Equipment Needed Diet:: Normal Diet Discharge Orders Discharge Orders: Discharge Order (Routine); Ordered 05/02/21 Ordered By: Gilberto Noe Discharge Data Discharge Date/Time-TO BE ENTERED AT DEPARTURE: 05/02/21 12:25 OB:DS Summary Summary Vaginal Delivery Method: Spontaneaous Episiotomy Description: None Laceration Description: None Laceration Extension: N/A complications OB DS: retained placenta Procedures: required manual extraction of placenta at about 1 hr pp - successful with IV fentanyl and Nitrous for anesthesia Time spent discussing smoking cessation with patient: more than 10 minutes Contraception Discussed Contraception Discussed: Yes, Infant Gender-Baby A: Female weight: 3725 g Disposition of Baby A: Home Infant Gender-Baby B: Male Status at Discharge Functional status at discharge: independent ambulation Overall status at discharge: patient is back to baseline Mental Status: mental status grossly normal Speech and Movement: speech and movement normal Mood: congruent mood Affect: normal affect Time Spent with Patient providing and/or coordinating discharge services: Less than 30 minutes Exam Physical Exam Vital signs: Temp Pulse Resp BP Pulse Ox 36.6 C 86 16 117/78 97 05/02/21 08:25 05/02/21 08:25 05/02/21 08:25 05/02/21 08:25 05/02/21 08:25 Vital Signs Reviewed: Yes Narrative: Geovanna did well post retained placenta manual removal. No fever, smelly lochia, fever. Doing all self care - showered, eating, doing quite well. [place] feeding off to good start. 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 Vasectomy for Family planning. Scarlet Constitutional Constitutional: no acute distress Cardiovascular Exam Cardiovascular Exam: Normal Abdominal Exam Abdomen: Diastasis Fundal Exam Fundus: Below Umbilicus [facility] Medical History (Updated 05/01/21 @ 07:46 by Gilberto Noe) Anxiety Tobacco abuse Surgical History (Updated 04/06/21 @ 12:11 by Priya Tejeda MD) History of cholecystectomy History of tonsillectomy and adenoidectomy Family History (Updated 04/06/21 @ 12:45 by Priya Tejeda MD) Mother Depression Thyroid disease Father No problems noted. Other Cancer Social History (Updated 04/06/21 @ 12:30 by Priya Tejeda MD) Smoking/Tobacco Use Status: Current every day Tobacco Type: cigarettes Smoking packs per day: 0.5 Smoking cigarettes per day: 10.0 Smoking risk assessment performed?: Yes Do you feel safe at home: Yes Do you feel safe in your relationship?: Yes Female Reproductive History Menstrual control method: permanent sterilization ( scheduled for vasectomy) History History 6 Para 3 Hx # Term Pregnancies 3 Multiple births Hx # Pregnancies Ectopic pregnancies AB induced 2 Hx Number of Living Children 3 AB spontaneous Past Pregnancies Del. Date GA/Weeks # Outcome Route Wgt Sex Labor Lgth Anesthes ia Location [facility] 11/15/05 40 No Successful vaginal 3600.389 g Male 6hr APD 06/06/08 40 No Successful vaginal 3628.739 g Female 5hr APD 03/04/20 41 No Successful vaginal 2920.001 g Female 4hr [facility] Delivery Date: 11/15/05 No notes to display Delivery Date: 06/06/08 No notes to display Delivery Date: 03/04/20 Induction due to postdates Priya Tejeda DS: Data Vitals/I&O Vitals and I&O: Vital Signs Temperature 36.6 C 05/02/21 08:25 Pulse 86 05/02/21 08:25 Pulse Rhythm Regular 05/02/21 08:25 Respiratory Rate 16 05/02/21 08:25 Respiratory Depth Normal 05/01/21 06:29 Blood Pressure 117/78 05/02/21 08:25 Blood Pressure Mean 91 05/02/21 08:25 Pulse Oximetry 97 05/02/21 08:25 Oxygen Delivery Method Room Air 05/01/21 06:29 Oxygen Flow Rate 0 05/01/21 06:29 Comment 05/01/21 10:48 Intake & Output 05/01/21 05/02/21 05/02/21 23:59 11:59 23:59 Intake Total 598.000 / 504.331 9347 / 1000 Output Total 1000 / 1000 Balance 598.000 / 738.000 0 / 0 Intake: IV 598.000 / 497.618 1611 / 1000 Output: Urine 1000 / 1000 Other: Urine Color Yellow Yellow Data Completed and Pending Labs on day of discharge: Labs from last 24 hours 05/02/21 05/01/21 06:10 06:10 WBC 15.67 H Cancelled RBC 4.66 Cancelled Hgb 13.8 Cancelled Hct 41.7 Cancelled MCV 89.5 Cancelled MCH 29.6 Cancelled MCHC 33.1 Cancelled RDW 14.4 Cancelled Plt Count 355 Cancelled MPV 9.5 Cancelled
== END 2021-05-02 12:25 | disposition home or self-care (01) | DRG 807 ==
PROVIDERS: Admitting Provider Family Medicine; PCP Family Medicine; Visit Provider Family Medicine
DX: O99.214 Obesity complicating childbirth (principal); Z37.0 Single live birth; Z3A.40 40 weeks gestation of pregnancy; O99.334 Smoking (tobacco) complicating childbirth; F17.210 Nicotine dependence, cigarettes, uncomplicated; O72.0 Third-stage hemorrhage; Z20.822 Contact with and (suspected) exposure to COVID-19
CPT/HCPCS: 36415; 85027; 86850; 86900; 86901; 87635; 90471; J3010